=== PATIENT | female | born 1965 | race American Indian/Alaskan Native ===

== ENCOUNTER 2021-04-23 12:22 | Outpatient (CLI) | payer MEDICAID ==
[2021-04-23 13:27] LABS: Alanine Aminotransferase 9 units/L (7-56); Albumin 4.3 g/dL (3.9-5); BUN/Creatinine Ratio 14; Blood Urea Nitrogen 11 mg/dL (7-17); Calcium 9.4 mg/dL (8.4-10.2); Hemolysis Index 1
[2021-04-23 13:28] LABS: Hematocrit 38.8 % (30.3-42.9); Hemoglobin 12.8 gm/dl (10.1-14.3); Mean Corpuscular HGB Conc 33 % (30-34); Mean Corpuscular Volume 84 fl (79-97); Platelet Count 194 K/mm3 (140-440); Red Blood Count 4.59 M/mm3 (3.65-5.03); Red Cell Distribution Width 14.3 % (13.2-15.2)
[2021-04-23 13:45] LABS: Erythrocyte Sedimentation Rate 14 mm/Hr (0-20)
[2021-04-23 13:52] LABS: C-Reactive Protein < 0.30 mg/dL (0.00-1.30)
== END 2021-04-23 12:23 | disposition home or self-care (01) ==
LOC: LAB 12:22
PROVIDERS: ATTEND Specialist
DX: H81.23 Vestibular neuronitis, bilateral (principal)
CPT/HCPCS: 36415; 80053; 85027; 85652; 86140